=== PATIENT | male | born 1985 | race Hispanic/Latino ===

== ENCOUNTER 2023-03-09 17:07 | Emergency (ER) | payer OTHER ==
[2023-03-09] VITALS (9 sets, daily range): BP systolic 111–138; BP diastolic 73–96
== END 2023-03-09 19:51 | DRG 605 ==
LOC: ED 17:07
DX: S81.011A Laceration without foreign body, right knee, initial encounter (principal); W27.1XXA Contact with garden tool, initial encounter; Y93.H2 Activity, gardening and landscaping; Y92.73 Farm field as the place of occurrence of the external cause; Y99.0 Civilian activity done for income or pay